=== PATIENT | male | born 1970 | race Caucasian/White ===

== ENCOUNTER 2016-07-19 19:41 | Inpatient (IN) | payer OTHER ==
[~2016-07-19] VITALS: Ht 175.3 cm; Wt 54.0 kg
[2016-07-19] MEDS ORDERED: MoRPHine SULFATE 4 MG/ML 1 ML CARP\\VIAL IV STA (20:07)
[2016-07-19] MEDS ORDERED: ONDANSETRON INJ 2 MG/ML 2 ML VIAL IV STA (20:07)
[2016-07-19] MEDS ORDERED: BUPR150T7 PO (20:23)
[2016-07-19] MEDS ORDERED: ATEN50TA8 PO (20:23)
[2016-07-19] MEDS ORDERED: LEVO100T7 PO (20:23)
[2016-07-19] MEDS ORDERED: ASPI81TA28 PO (20:23)
[2016-07-19] MEDS ORDERED: LTHSR/300 PO (20:23)
[2016-07-19 20:34] LABS: BASO % 0.7 %; BASO ABS # 0.08 K/uL (0-0.2); COMPLETE YES; EOS % 6.6 %; HEMATOCRIT 31.2 % (42-52); IG% 0.1 %; LYMPH % 14.1 %; LYMPH ABS # 1.72 K/uL (1.2-3.4); MEAN CELL VOLUME 93.7 fL (80-100); MEAN CORPUSCULAR HEMOGLOBIN 30.9 pg (25-34); MEAN PLATELET VOLUME 9.8 fL (7.4-10.4); MONO % 12.3 %; NEUT % 66.2 %; PLATELET COUNT 691 K/uL (130-400); RED BLOOD COUNT 3.33 M/uL (4.7-6.1); WHITE BLOOD COUNT 12.21 K/uL (4.8-10.8)
[2016-07-19 20:50] LABS: INR 1.3 (0.9-1.1); PARTIAL THROMBOPLASTIN RATIO 1.2
[2016-07-19 20:52] LABS: ALT/SGPT 18 U/L (12-78); AST/SGOT 13 U/L (15-37); BLOOD UREA NITROGEN 15 mg/dl (7-18); BUN/CREATININE RATIO 17.5 (10-20); CALCIUM 8.6 mg/dl (8.5-10.1); CARBON DIOXIDE 26 mmol/L (21-32); CHLORIDE 104 mmol/L (98-107); CREATININE 0.84 mg/dl (0.60-1.40); GLUCOSE 101 mg/dl (70-99); POTASSIUM 3.9 mmol/L (3.5-5.1); SODIUM 138 mmol/L (136-145)
[2016-07-19 20:55] LABS: ALKALINE PHOSPHATASE 94 U/L (45-117)
--- NOTE | 2016-07-19 21:03 | DIAGNOSTIC IMAGING REPORT ---
CHEST 2 VIEWS ROUTINE CLINICAL HISTORY: Left arm swelling COMPARISON STUDY: No previous studies for comparison. FINDINGS: The heart is normal in size. There is no failure. There is no focal pulmonary consolidation. There are small bilateral pleural effusions. Small calcifications are visualized within the anterior mediastinum, likely represent calcified nodes.[ There are minor basilar atelectatic changes. IMPRESSION: Small bilateral pleural effusions. No evidence of failure. Electronically signed by: Alexandru Reich M.D. 07/19/2016 9:02 PM Dictated Date/Time: 07/19/2016 9:01 PM
--- NOTE | 2016-07-19 21:23 | DIAGNOSTIC IMAGING REPORT ---
ULTRASOUND VENOUS DOPPLER ULTRASOUND OF THE LEFT UPPER EXTREMITY CLINICAL HISTORY: Left arm swelling COMPARISON STUDY: No previous studies for comparison. FINDINGS: There is extensive thrombus within the left internal jugular vein, subclavian vein, and axillary vein. There is also thrombus in the basilic and brachial veins. The cephalic vein appears patent. The radial and ulnar veins appear patent. Thrombus diameter within the internal jugular vein is 9 mm. IMPRESSION: Extensive acute left upper extremity DVT with involvement of the left internal jugular vein, subclavian vein, and axillary vein, and brachial and basilic veins. Electronically signed by: Alexandru Reich M.D. 07/19/2016 9:22 PM Dictated Date/Time: 07/19/2016 9:18 PM
--- NOTE | 2016-07-19 22:18 | EMERGENCY ROOM VISIT NOTE ---
History Report prepared by Howard: Irais Glass Under the Supervision of: Dr. Rj Garcia M.D. First contact with patient: 19:52 Chief Complaint: SWELLING TO EXTREMITY Stated Complaint: EXTREME SWELLING OF LEFT ARM History of Present Illness The patient is a 46 year old male who presents to the Emergency Room with complaints of left arm swelling beginning yesterday. The patient states that he has had pancreatic cancer for 7 months and uses holistic care and cannabis oil to manage his symptoms. This is managed by himself and his son who is a sports trainer. He is not regularly seen by a physician. The patient's son states that 6 days ago the patient had swelling of his feet and he took a bath with Epsom salts and the swelling resolved. Yesterday he reports that his left hand and arm began swelling and the Epsom salt bath helped it to go down significantly but today it is swelled up again. The patient states that he feels like his arm was "pounded" and bruised. He denies any abdominal pain, chest pain, shortness of breath, fever, diarrhea, black or bloody stools, and history of blood clots. He notes that he is in early stages of emphysema and his pancreatic tumor is wrapped around an artery and inoperable. He was told that he had 6 months to live 7 months ago. The son notes that the patient recently moved to the area for ease of care. Source of History: patient Onset: yesterday Position: arm (left) Symptom Intensity: moderate Quality: other (swelling/pounded/bruising) Timing: constant Modifying Factors (Relieving): other (Epsom Salt bath) Associated Symptoms: No SOB, No abdominal pain, No chest pain, No diarrhea, No fevers Note: He denies any black or bloody stools and history of blood clots. Review of Systems See HPI for pertinent positives & negatives. A total of 10 systems reviewed and were otherwise negative. Past Medical & Surgical Medical Problems: (1) Ascites (2) Colitis (3) Pancreatic cancer Family History No pertinent family history stated. Social History Smoking Status: Former Smoker Housing Status: lives with family Occupation Status: unemployed Current/Historical Medications Scheduled Aspirin (Aspirin Ec), 81 MG PO DAILY Atenolol (Tenormin), 50 MG PO BID Bupropion Hcl (Wellbutrin Sr), 150 MG PO DAILY Levothyroxine Sodium (Levothyroxine Sodium), 100 MG PO DAILY Burgin Carbonate (Burgin Carbonate), 300 MG PO BID Allergies Coded Allergies: Clarithromycin (Verified Allergy, Intermediate, Facial swelling, 07/19/16) Physical Exam Vital Signs Date Time Temp Pulse Resp B/P Pulse Ox O2 Delivery O2 Flow Rate FiO2 07/19/16 21:30 81 16 111/63 99 Room Air 07/19/16 19:45 37.0 86 18 106/72 100 Room Air Physical Exam Constitutional: Vital signs reviewed. Eyes: Pupils are equal round reactive to light. Conjunctiva are noninjected. ENT: Pharynx is clear without erythema or exudate. Mucous membranes are moist. Neck supple without meningeal signs. Respiratory: Clear to auscultation bilaterally. Breath sounds are equal bilaterally. Cardiovascular: Regular rate and rhythm. No rubs or gallops. GI: Soft, nondistended. Bowel sounds are present. Supraumbilical tenderness without guarding Musculoskeletal: No lower extremity tenderness. Diffuse swelling to the left upper extremity. Good distal pulses. No signs of compartment syndrome. Tenderness over the distal bicep. Integumentary: No cyanosis. Neurological: The patient is awake and alert. No focal deficits. Psychiatric: Normal affect. Medical Decision & Procedures ER Provider Diagnostic Interpretation: Other radiology results as stated below per my review and the radiologist's interpretation: CHEST 2 VIEWS ROUTINE FINDINGS: The heart is normal in size. There is no failure. There is no focal pulmonary consolidation. There are small bilateral pleural effusions. Small calcifications are visualized within the anterior mediastinum, likely represent calcified nodes. There are minor basilar atelectatic changes. IMPRESSION: Small bilateral pleural effusions. No evidence of failure. Electronically signed by: Alexandru Reich M.D. 07/19/2016 9:02 PM Dictated Date/Time: 07/19/2016 9:01 PM ULTRASOUND VENOUS DOPPLER ULTRASOUND OF THE LEFT UPPER EXTREMITY FINDINGS: There is extensive thrombus within the left internal jugular vein, subclavian vein, and axillary vein. There is also thrombus in the basilic and brachial veins. The cephalic vein appears patent. The radial and ulnar veins appear patent. Thrombus diameter within the internal jugular vein is 9 mm. IMPRESSION: Extensive acute left upper extremity DVT with involvement of the left internal jugular vein, subclavian vein, and axillary vein, and brachial and basilic veins. Electronically signed by: Alexandru Reich M.D. 07/19/2016 9:22 PM Dictated Date/Time: 07/19/2016 9:18 PM Laboratory Results 07/19/16 20:24 Red Blood Count 3.33, Mean Corpuscular Volume 93.7, Mean Corpuscular Hemoglobin 30.9, Mean Corpuscular Hemoglobin Concent 33.0, Mean Platelet Volume 9.8, Neutrophils (%) (Auto) 66.2, Lymphocytes (%) (Auto) 14.1, Monocytes (%) (Auto) 12.3, Eosinophils (%) (Auto) 6.6, Basophils (%) (Auto) 0.7, Neutrophils # (Auto ) 8.10, Lymphocytes # (Auto) 1.72, Monocytes # (Auto) 1.50, Eosinophils # (Auto ) 0.80, Basophils # (Auto) 0.08 07/19/16 20:24 Test 07/19/16 20:24 White Blood Count 12.21 K/uL (4.8-10.8) Red Blood Count 3.33 M/uL (4.7-6.1) Hemoglobin 10.3 g/dL (14.0-18.0) Hematocrit 31.2 % (42-52) Mean Corpuscular Volume 93.7 fL (80-100) Mean Corpuscular Hemoglobin 30.9 pg (25-34) Mean Corpuscular Hemoglobin Concent 33.0 g/dl (32-36) Platelet Count 691 K/uL (130-400) Mean Platelet Volume 9.8 fL (7.4-10.4) Neutrophils (%) (Auto) 66.2 % Lymphocytes (%) (Auto) 14.1 % Monocytes (%) (Auto) 12.3 % Eosinophils (%) (Auto) 6.6 % Basophils (%) (Auto) 0.7 % Neutrophils # (Auto) 8.10 K/uL (1.4-6.5) Lymphocytes # (Auto) 1.72 K/uL (1.2-3.4) Monocytes # (Auto) 1.50 K/uL (0.11-0.59) Eosinophils # (Auto) 0.80 K/uL (0-0.5) Basophils # (Auto) 0.08 K/uL (0-0.2) RDW Standard Deviation 48.2 fL (36.4-46.3) RDW Coefficient of Variation 14.0 % (11.5-14.5) Immature Granulocyte % (Auto) 0.1 % Immature Granulocyte # (Auto) 0.01 K/uL (0.00-0.02) Prothrombin Time 14.0 SECONDS (9.0-12.0) Prothromb Time International Ratio 1.3 (0.9-1.1) Activated Partial Thromboplast Time 31.4 SECONDS (21.0-31.0) Partial Thromboplastin Ratio 1.2 Anion Gap 8.0 mmol/L (3-11) Est Creatinine Clear Calc Drug Dose 88.1 ml/min Estimated GFR () 121.7 Estimated GFR (Non- 105.0 BUN/Creatinine Ratio 17.5 (10-20) Calcium Level 8.6 mg/dl (8.5-10.1) Total Bilirubin 0.3 mg/dl (0.2-1) Direct Bilirubin < 0.1 mg/dl (0-0.2) Aspartate Amino Transf (AST/SGOT) 13 U/L (15-37) Alanine Aminotransferase (ALT/SGPT) 18 U/L (12-78) Alkaline Phosphatase 94 U/L (45-117) Total Protein 6.8 gm/dl (6.4-8.2) Albumin 2.6 gm/dl (3.4-5.0) Lipase 672 U/L (73-393) Laboratory results as reviewed by me. ED Course 1951: The patient was evaluated in room C11. A complete history and physical exam was performed. 2006: Zofran Inj 4mg IV, Morphine Sulfate 4mg IV. 2128: I talked to the patient and his son about the test results. Discussed risks and benefits of blood thinners. Denies rectal bleeding or bloody stools over the last month. He agrees to the IV heparin. 2199: I spoke with Dr. Lizarraga of [facility] [place]. We discussed the patient and his results. The patient will be further evaluated by Dr. Lizarraga. 2203: I spoke to Dr. Toribio who recommended anticoagulation at this point. I relayed this to Dr. Lizarraga. 2203: Heparin Sodium/Dextrose 1ea. NA. Medical Decision This is a 46-year-old male who presents with swelling to his left arm. Differential diagnosis includes DVT, superficial thrombophlebitis, cellulitis, myositis, renal disease, lung tumor. I did perform a limited focused review of portions of the patient's old chart on the electronic medical record. The patient has had no prior visits. I did evaluate the patient as noted above. The patient has a history of pancreatic cancer. He is presenting here with significant pain and swelling to his left arm. He does not have any signs of compartment syndrome. He is neurovascularly intact at this time. He denies any chest pain or shortness of breath. IV access was established. The patient was placed on a continuous monitoring analyst. I did order and personally review the patient's chest x-ray as described above. I did order and review the patient's blood work as noted in the electronic medical record. I did order an ultrasound of the left upper extremity. I did review the images myself as well as the radiology report as described above. He does have an extensive DVT to left upper extremity extending from his jugular vein down into his basilic vein. I did discuss the test results with the patient and his family. I did recommend hospitalization for further care. I did discuss risks and benefits of IV heparin with the patient and his son. I did treat the patient with IV heparin. I did discuss the case with Dr. Sarah a vascular surgery as well as Dr. Saez who will hospitalized patient. Consults Time Called: 2138 Consulting Physician: Dr. Lizarraga - [facility] [place] Returned Call: [address] Lizarraga of [facility] [place]. We discussed the patient and his results. The patient will be further evaluated by Dr. Lizarraga. Additional Consults: Time Called: 2199 Consulted Physician: Dr. Toribio Returned Call: 2203 Additional Comments: I spoke to Dr. Toribio who recommended anticoagulation at this point. I relayed this to Dr. Lizarraga. Impression Primary Impression: Jugular vein thrombosis, left Additional Impressions: Deep vein thrombosis (DVT) of left upper extremity Anemia Pancreatic cancer Scribe Attestation The scribe's documentation has been prepared under my direct and personally reviewed by me in its entirety. I confirm that the note above accurately reflects all work, treatment, procedures, and medical decision making performed by me. Departure Information Dispostion Being Evaluated By Hospitalist Referrals No Doctor, Assigned (PCP) Patient Instructions My [facility] Problem Qualifiers Additional Impressions: Deep vein thrombosis (DVT) of left upper extremity Affected thrombotic vein of extremity: unspecified vein of extremity Chronicity: acute Qualified Codes: I82.622 - Acute embolism and thrombosis of deep veins of left upper extremity Pancreatic cancer Pancreatic malignancy location: unspecified Qualified Codes: C25.9 - Malignant neoplasm of pancreas, unspecified
[2016-07-19] MEDS ORDERED: LITHIUM CARBONATE 300 MG TAB PO ONE (22:20)
[2016-07-19] MEDS ORDERED: HEPARIN SOD 5000 UNIT/0.5 ML CARP ONE (22:26)
[2016-07-19] MEDS ORDERED: HEPARIN 25000 UNIT/500 ML D5W ONE (22:27)
[2016-07-19] MEDS ORDERED: ZOLPIDEM TARTRATE 5 MG TAB PO PRN (22:30)
[2016-07-19] MEDS ORDERED: MoRPHine SULFATE 4 MG/ML 1 ML CARP\\VIAL IV PRN (22:30)
[2016-07-19] MEDS ORDERED: ACETAMINOPHEN 325 MG TAB PO PRN (22:30)
[2016-07-19] MEDS ORDERED: ONDANSETRON INJ 2 MG/ML 2 ML VIAL IV PRN (22:30)
[2016-07-19] MEDS ORDERED: ALUMINUM/MAGNESIUM/SIMETH (MAALOX MAX) 30 ML UDC PO PRN (22:30)
[2016-07-19] MEDS ORDERED: PROMETHAZINE HCL INJ 12.5 MG in SODIUM CHLORIDE 0.9% 50ML 50 ML IV PRN (22:30)
[2016-07-19] MEDS ORDERED: DiphenhydrAMINE HCL 50 MG/ML VIAL IV PRN (22:30)
[2016-07-19] MEDS ORDERED: MoRPHine SULFATE 2 MG/ML CARP IV PRN (22:30)
[2016-07-19] MEDS ORDERED: LORAZEPAM 2 MG/ML 1 ML VIAL IV PRN (22:30)
[2016-07-19] MEDS ORDERED: MIRTAZAPINE TAB 15 MG TAB PO STA (23:37)
[2016-07-19 23:41] VITALS: BP 97/60; PULSE 75; TEMP 36.9; O2SAT 97
[2016-07-20] VITALS (7 sets, daily range): BP systolic 90–132; BP diastolic 54–79; PULSE 69–86; TEMP 36.5–37; O2SAT 98–99; BMI 18.5
--- NOTE | 2016-07-20 01:57 | History and Physical ---
History & Physical Date & Time of Service: Jul 20, 2016 at 01:44 Chief Complaint: Deep Vein Thrombosis Of Left Upper Extremity Primary Care Physician: No Doctor, Assigned History of Present Illness Source: patient, friend The patient is a 46-year-old male who presents emergency department with worsening left arm swelling that began the day prior to arrival. Patient has a history of pancreatic cancer for 7 months, he reports using holistic care and cannabis oil dementia symptoms. When the swelling in his left hand and arm began yesterday, Epsom salt bath help to go down significantly, but since it swelled up again today, he presents to the emergency department for assessment. Doppler revealed an extensive left upper extremity DVT, with involvement of the left internal jugular vein, with the concern to possibly develop compartment syndrome, and was then referred for evaluation for admission. His family and friend report that his oral intake has been significantly reduced. Social History Smoking Status: Current Every Day Smoker Smokeless Tobacco Use: No Alcohol Use: none Drug Use: none Housing status: lives with family Occupational Status: unemployed Multi-Drug Resistant Organisms History of MDRO: No Allergies Coded Allergies: Clarithromycin (Verified Allergy, Intermediate, Facial swelling, 07/19/16) Home Medications Scheduled Aspirin (Aspirin Ec), 81 MG PO DAILY Atenolol (Tenormin), 50 MG PO BID Bupropion Hcl (Wellbutrin Sr), 150 MG PO DAILY Levothyroxine Sodium (Levothyroxine Sodium), 100 MG PO DAILY [place]well Carbonate (Austwell Carbonate), 300 MG PO BID Review of Systems The patient denies chest pain, palpitations, shortness of breath, cough, lower extremity swelling, vision change, hearing change, sore throat, fevers, chills, sweats, vomiting, abdominal pain, pelvic pain, blood in urine or stool, dysuria , urinary frequency or urgency, headache, memory loss, rash, abnormal bruising or bleeding, imbalance, focal weakness, back or neck pain, night sweats, or allergy symptoms. The review of systems is otherwise negative other than for that already noted above, and at least 10 systems have been reviewed. Physical Exam Vital Signs Date Time Temp Pulse Resp B/P Pulse Ox O2 Delivery O2 Flow Rate FiO2 07/20/16 00:08 36.9 75 20 97/60 Room Air 07/19/16 23:41 36.9 75 20 97/60 97 Room Air 07/19/16 22:46 86 18 114/70 100 07/19/16 21:30 81 16 111/63 99 Room Air 07/19/16 19:45 37.0 86 18 106/72 100 Room Air The patient is awake, appears gaunt and malnourished, alert and oriented 3, lying in bed and in no acute distress. HEENT--PERRL, EOMI, mucous membranes and oropharynx dry. Neck--supple, no JVD or bruits, thyroid normal, trachea midline, no adenopathy. Heart--normal S1 and S2, no extra beats, no murmurs, rubs or gallops. Lungs--clear bilaterally, No respiratory distress, no accessory muscle use. Abdomen--normal bowel sounds and soft, nontender and nondistended, no hernias or masses, no organomegaly. Extremities--bilateral lower extremities with no cyanosis, clubbing or edema. Left upper extremity with significant edema, no erythema or warmth. There are good distal pulses b/l. Dermatologic--normal skin turgor, normal color, warm and dry, no abnormal lymph nodes, no rash. Neurologic--cranial nerves II through XII grossly intact. Rheumatologic--decreased range of motion of left upper extremity due to significant edema Psychiatric--normal affect. Diagnostics Laboratory Results Results Past 24 Hours Test 07/19/16 20:24 Range/Units White Blood Count 12.21 4.8-10.8 K/uL Red Blood Count 3.33 4.7-6.1 M/uL Hemoglobin 10.3 14.0-18.0 g/dL Hematocrit 31.2 42-52 % Mean Corpuscular Volume 93.7 80-100 fL Mean Corpuscular Hemoglobin 30.9 25-34 pg Mean Corpuscular Hemoglobin Concent 33.0 32-36 g/dl Platelet Count 691 130-400 K/uL Mean Platelet Volume 9.8 7.4-10.4 fL Neutrophils (%) (Auto) 66.2 % Lymphocytes (%) (Auto) 14.1 % Monocytes (%) (Auto) 12.3 % Eosinophils (%) (Auto) 6.6 % Basophils (%) (Auto) 0.7 % Neutrophils # (Auto) 8.10 1.4-6.5 K/uL Lymphocytes # (Auto) 1.72 1.2-3.4 K/uL Monocytes # (Auto) 1.50 0.11-0.59 K/uL Eosinophils # (Auto) 0.80 0-0.5 K/uL Basophils # (Auto) 0.08 0-0.2 K/uL RDW Standard Deviation 48.2 36.4-46.3 fL RDW Coefficient of Variation 14.0 11.5-14.5 % Immature Granulocyte % (Auto) 0.1 % Immature Granulocyte # (Auto) 0.01 0.00-0.02 K/uL Prothrombin Time 14.0 9.0-12.0 SECONDS Prothromb Time International Ratio 1.3 0.9-1.1 Activated Partial Thromboplast Time 31.4 21.0-31.0 SECONDS Partial Thromboplastin Ratio 1.2 Sodium Level 138 136-145 mmol/L Potassium Level 3.9 3.5-5.1 mmol/L Chloride Level 104 98-107 mmol/L Carbon Dioxide Level 26 21-32 mmol/L Anion Gap 8.0 3-11 mmol/L Blood Urea Nitrogen 15 7-18 mg/dl Creatinine 0.84 0.60-1.40 mg/dl Est Creatinine Clear Calc Drug Dose 88.1 ml/min Estimated GFR () 121.7 Estimated GFR (Non- 105.0 BUN/Creatinine Ratio 17.5 10-20 Random Glucose 101 70-99 mg/dl Calcium Level 8.6 8.5-10.1 mg/dl Total Bilirubin 0.3 0.2-1 mg/dl Direct Bilirubin < 0.1 0-0.2 mg/dl Aspartate Amino Transf (AST/SGOT) 13 15-37 U/L Alanine Aminotransferase (ALT/SGPT) 18 12-78 U/L Alkaline Phosphatase 94 45-117 U/L Total Protein 6.8 6.4-8.2 gm/dl Albumin 2.6 3.4-5.0 gm/dl Lipase 672 73-393 U/L Diagnostic Radiology Patient Name: YASMEEN GONZALEZ Unit Number: [id number] Dictated: 07/19/162117 Transcribed: 07/19/162117 ARG Printed Date/Time: [~ rep prt dt]/[~ rep prt tm] [~ rep ct labl] - [~ rep ct ivnm] [facility] [place] [address] Dictated: 07/19/162117 Transcribed: 07/19/162117 ARG Printed Date/Time: [~ rep prt dt]/[~ rep prt tm] [~ rep ct labl] - [~ rep ct ivnm] ULTRASOUND VENOUS DOPPLER ULTRASOUND OF THE LEFT UPPER EXTREMITY CLINICAL HISTORY: Left arm swelling COMPARISON STUDY: No previous studies for comparison. FINDINGS: There is extensive thrombus within the left internal jugular vein, subclavian vein, and axillary vein. There is also thrombus in the basilic and brachial veins. The cephalic vein appears patent. The radial and ulnar veins appear patent. Thrombus diameter within the internal jugular vein is 9 mm. IMPRESSION: Extensive acute left upper extremity DVT with involvement of the left internal jugular vein, subclavian vein, and axillary vein, and brachial and basilic veins. Electronically signed by: Alexandru Reich M.D. 07/19/2016 9:22 PM Dictated Date/Time: 07/19/2016 9:18 PM The status of this report is Signed. Draft = Not yet reviewed or approved by Radiologist. Signed = Reviewed and approved by Radiologist. <AttendingPhy></AttendingPhy> <FamilyPhy>No Doctor, Assigned</FamilyPhy> < PrimaryPhy>No Doctor, Assigned</PrimaryPhy> <UnitNumber>[id number]</UnitNumber> <VisitNumber>[id number]</VisitNumber> <PatientName>LISAYASMEEN Cindy</PatientName > <DateOfBirth>1970</DateOfBirth> <Location>[facility]</Location> <ServiceDate> 07/19/16</ServiceDate> <MNE>ESINDI</MNE> <OrderingPhy>Rj Garcia MD</ OrderingPhy> <OrderingPhyMNE>f rep ord dr escobedo</OrderingPhyMNE> <DictatingPhyMNE> f rep dict dr escobedo</DictatingPhyMNE> <CCListMNE>f rep ct mne</CCListMNE> < AdmittingPhyMNE>f pt admit dr escobedo</AdmittingPhyMNE> <AttendingPhyMNE>f pt attend dr escobedo</AttendingPhyMNE> <ConsultingPhyMNE>f pt consult dr escobedo</ConsultingPhyMNE> <FamilyPhyMNE>f pt fam dr escobedo</FamilyPhyMNE> <OtherPhyMNE>f pt other dr escobedo</OtherPhyMNE> < PrimaryPhyMNE>f pt prim care dr escobedo</PrimaryPhyMNE> <ReferringPhyMNE>f pt referring dr escobedo</ReferringPhyMNE> Patient Name: YASMEEN GONZALEZ Unit Number: [id number] Dictated: 07/19/162100 Transcribed: 07/19/162100 ARG Printed Date/Time: [~ rep prt dt]/[~ rep prt tm] [~ rep ct labl] - [~ rep ct ivnm] [facility] [place] [address] Dictated: 07/19/162100 Transcribed: 07/19/162100 ARG Printed Date/Time: [~ rep prt dt]/[~ rep prt tm] [~ rep ct labl] - [~ rep ct ivnm] [~ rep ct add3]] CHEST 2 VIEWS ROUTINE CLINICAL HISTORY: Left arm swelling COMPARISON STUDY: No previous studies for comparison. FINDINGS: The heart is normal in size. There is no failure. There is no focal pulmonary consolidation. There are small bilateral pleural effusions. Small calcifications are visualized within the anterior mediastinum, likely represent calcified nodes.[ There are minor basilar atelectatic changes. IMPRESSION: Small bilateral pleural effusions. No evidence of failure. Electronically signed by: Alexandru Reich M.D. 07/19/2016 9:02 PM Dictated Date/Time: 07/19/2016 9:01 PM The status of this report is Signed. Draft = Not yet reviewed or approved by Radiologist. Signed = Reviewed and approved by Radiologist. <AttendingPhy></AttendingPhy> <FamilyPhy>No Doctor, Assigned</FamilyPhy> < PrimaryPhy>No Doctor, Assigned</PrimaryPhy> <UnitNumber>[id number]</UnitNumber> <VisitNumber>[id number]</VisitNumber> <PatientName>YASMEEN GONZALEZ</PatientName > <DateOfBirth>1970</DateOfBirth> <Location>[facility]</Location> <ServiceDate> 07/19/16</ServiceDate> <MNE>ESINDI</MNE> <OrderingPhy>Rj Garcia MD</ OrderingPhy> <OrderingPhyMNE>f rep ord dr escobedo</OrderingPhyMNE> <DictatingPhyMNE> f rep dict dr escobedo</DictatingPhyMNE> <CCListMNE>f rep ct fanny</CCListMNE> < AdmittingPhyMNE>f pt admit dr escobedo</AdmittingPhyMNE> <AttendingPhyMNE>f pt attend dr escobedo</AttendingPhyMNE> <ConsultingPhyMNE>f pt consult dr escobedo</ConsultingPhyMNE> <FamilyPhyMNE>f pt fam dr escobedo</FamilyPhyMNE> <OtherPhyMNE>f pt other dr escobedo</OtherPhyMNE> < PrimaryPhyMNE>f pt prim care dr escobedo</PrimaryPhyMNE> <ReferringPhyMNE>f pt referring dr escobedo</ReferringPhyMNE> Impression Assessment and Plan Extensive left upper extremity DVT/internal jugular vein thrombosis--the patient will be admitted to the medical floor. He'll be placed on heparin IV weight-based protocol. Dr. Sarah from vascular surgery has been consulted by the emergency department personnel and will see the patient. The patient will keep his arm at heart level, not allowed to be dependent, to help avoid compartment syndrome. Pancreatic cancer--patient has been following holistic treatment, and does not regularly see a physician. Hypertension--continue atenolol 50 mg by mouth twice a day with hold parameters , and enteric-coated aspirin 81 mg by mouth daily. Hypothyroidism--continue levothyroxine sodium 100 g by mouth daily. Bipolar disorder--continue lithium carbonate 300 mg by mouth twice a day, Wellbutrin SR 150 mg by mouth every morning, and will add mirtazapine 15 mg by mouth at bedtime for sleep and possible appetite stimulation. Appetite stimulant--we'll add Megace 800 mg liquid by mouth every morning. Level of Care Med/Surg Advanced Directives Existing Advance Directive: No Existing Living Will: No Existing Power of Sales Agent Casualty Insurance: No Resuscitation Status FULL RESUSCITATION VTE Prophylaxis VTE Risk Assessment Done? Y/N: Yes Risk Level: High Given or contraindicated: Unfractionated heparin SQ
[2016-07-20] MEDS: LEVOTHYROXINE 100 MCG TAB PO SCH ×2 (06:11→22:35)
[2016-07-20] MEDS ORDERED: MEGESTROL ACETATE 800 MG/20 ML UDP PO SCH (09:00)
[2016-07-20] MEDS: BuPROPion SR 150 MG TABCR PO SCH (09:16)
[2016-07-20] MEDS: LITHIUM CARBONATE 300 MG TAB PO SCH ×2 (09:17→19:40)
[2016-07-20] MEDS: MEGESTROL ACETATE PO SCH (09:18)
[2016-07-20] MEDS: ASPIRIN 81 MG ECTAB PO SCH (09:18)
[2016-07-20 12:43] LABS: PARTIAL THROMBOPLASTIN RATIO 1.3
[2016-07-20] MEDS ORDERED: HEPARIN IV BOLUS 5,000 UNIT in SYRINGE 0 ML IV ONE (14:15)
[2016-07-20] MEDS ORDERED: OXYCODONE HCL IR 5 MG TAB (IMMEDIATE RELEASE) PO PRN (14:30)
[2016-07-20] MEDS: HEPARIN 25,000 UNIT/500ML D5W 500 ML IV PRN ×2 (14:33→22:35)
--- NOTE | 2016-07-20 14:33 | Progress Note ---
Subjective Date of Service: Jul 20, 2016. Subjective Pt evaluation today including: conversation w/ patient, physical exam, chart review, lab review, review of inpatient medication list arm still swollen, still hurts. no real change there. notes slurred speech but appears fatigued, and denies any face numbness/weakness or difficulties with tongue. no chest pain no shortness of breath notes that he's been mostly in [facility] since 2001, but notes that pancreatic cancer was diagnosed in [facility] (he believes - relates [facility]) about 7 months ago. interestingly home address in computer system [place] but he relates he hasn't lived there for quite a while. Problem List Medical Problems: (1) Anemia Status: Acute (2) Deep vein thrombosis (DVT) of left upper extremity Status: Acute (3) Jugular vein thrombosis, left Status: Acute Review of Systems Respiratory: No shortness of breath Cardiac: No chest pain Musculoskeletal: + problem reported (L arm swelling and pain) ros otherwise negative except for as above Objective Vital Signs Date Time Temp Pulse Resp B/P Pulse Ox O2 Delivery O2 Flow Rate FiO2 07/20/16 11:22 36.5 74 18 94/59 98 Room Air 07/20/16 08:00 Room Air 07/20/16 07:33 36.7 69 16 95/60 99 Room Air 07/20/16 04:22 36.5 81 16 132/79 98 Room Air 07/20/16 00:08 36.9 75 20 97/60 Room Air 07/19/16 23:41 36.9 75 20 97/60 97 Room Air 07/19/16 22:46 86 18 114/70 100 07/19/16 21:30 81 16 111/63 99 Room Air 07/19/16 19:45 37.0 86 18 106/72 100 Room Air Physical Exam General Appearance: no apparent distress Eyes: EOMI ENT: hearing grossly normal Neck: trachea midline Respiratory/Chest: no respiratory distress, no accessory muscle use Extremities: + swelling, + pertinent finding (LUE diffusely swollen and tender , appearing neurovascularly intact distally though, skin not tense so as to suggest compartment syndrome) Neurologic/Psychiatric: test manager II-XII nml as tested, alert, normal mood/affect Skin: normal color, warm/dry Laboratory Results Last 24 Hours Test 07/19/16 20:24 07/20/16 04:32 07/20/16 12:05 White Blood Count 12.21 K/uL Red Blood Count 3.33 M/uL Hemoglobin 10.3 g/dL Hematocrit 31.2 % Mean Corpuscular Volume 93.7 fL Mean Corpuscular Hemoglobin 30.9 pg Mean Corpuscular Hemoglobin Concent 33.0 g/dl Platelet Count 691 K/uL Mean Platelet Volume 9.8 fL Neutrophils (%) (Auto) 66.2 % Lymphocytes (%) (Auto) 14.1 % Monocytes (%) (Auto) 12.3 % Eosinophils (%) (Auto) 6.6 % Basophils (%) (Auto) 0.7 % Neutrophils # (Auto) 8.10 K/uL Lymphocytes # (Auto) 1.72 K/uL Monocytes # (Auto) 1.50 K/uL Eosinophils # (Auto) 0.80 K/uL Basophils # (Auto) 0.08 K/uL RDW Standard Deviation 48.2 fL RDW Coefficient of Variation 14.0 % Immature Granulocyte % (Auto) 0.1 % Immature Granulocyte # (Auto) 0.01 K/uL Prothrombin Time 14.0 SECONDS Prothromb Time International Ratio 1.3 Activated Partial Thromboplast Time 31.4 SECONDS 77.2 SECONDS 34.3 SECONDS Partial Thromboplastin Ratio 1.2 3.0 1.3 Sodium Level 138 mmol/L Potassium Level 3.9 mmol/L Chloride Level 104 mmol/L Carbon Dioxide Level 26 mmol/L Anion Gap 8.0 mmol/L Blood Urea Nitrogen 15 mg/dl Creatinine 0.84 mg/dl Est Creatinine Clear Calc Drug Dose 88.1 ml/min Estimated GFR () 121.7 Estimated GFR (Non- 105.0 BUN/Creatinine Ratio 17.5 Random Glucose 101 mg/dl Calcium Level 8.6 mg/dl Total Bilirubin 0.3 mg/dl Direct Bilirubin < 0.1 mg/dl Aspartate Amino Transf (AST/SGOT) 13 U/L Alanine Aminotransferase (ALT/SGPT) 18 U/L Alkaline Phosphatase 94 U/L Total Protein 6.8 gm/dl Albumin 2.6 gm/dl Lipase 672 U/L Assessment and Plan LUE DVT -appears to relate to pancreatic cancer as cause for hypercoagulability -appears painful but no evidence to suggest compartment syndrome; has not used any prn pain meds -continue heparin gtt. discussed lovenox (treatment of choice w DVT related to most malignancies) vs NOAC (less data for use in malignancy but not an injectable) - and discussed risks/benefits unique to his situation (grave prognosis and already outlived predicted life expectancy) so that quality of life may also come into decision making on one type of anticoagulant vs another. also discussed that i am unaware of alternative medicine measures that could treat DVT effectively pancreatic cancer -relates he was told it was "wrapped around a blood vessel so they couldn't operate" and he then opted for alternative treatments given grave prognosis and relative futility w high ADRs from chemo/etc -appears to have done well -would like to get records to confirm dx and also to see if any other palliative measures might be of benefit to him (such as palliative radiation, etc) social situation -per him, lives with son. on review of records does not appear to get regular medical care anywhere, and hospital care clearly sporadic and scattered. will try to get records from [facility] in [place], would also want to ensure he has a local PCP so that if he develops need for more conventional medical care ( new issues arise, if he needs hospice care, etc) he would have easier means to seek care low BMI/probable moderate protein calorie malnutrition -likely relates to cancer more than anything; started on megace, follow anemia -follow mild leukocytosis -nonspecific elevated INR -mild but noted to be up. ?liver mets. await outside records dispo - hopefully home w son in next 1-2 days - would want better pain control.
[2016-07-20] MEDS: MIRTAZAPINE TAB 15 MG TAB PO SCH (19:40)
[2016-07-20 21:11] LABS: PARTIAL THROMBOPLASTIN RATIO 3.7
[2016-07-21] VITALS (8 sets, daily range): BP systolic 94–120; BP diastolic 56–82; PULSE 74–101; TEMP 36.6–36.9; O2SAT 96–99; Ht 175.3 cm; Wt 54.0 kg
[2016-07-21] MEDS: HEPARIN 25,000 UNIT/500ML D5W 500 ML IV PRN (01:16)
[2016-07-21 04:14] LABS: PARTIAL THROMBOPLASTIN RATIO 2.1
[2016-07-21] MEDS: LEVOTHYROXINE 100 MCG TAB PO SCH (05:43)
[2016-07-21 07:20] LABS: HEMATOCRIT 29.6 % (42-52); MEAN CELL VOLUME 92.2 fL (80-100); MEAN CORPUSCULAR HEMOGLOBIN 30.5 pg (25-34); MEAN CORPUSCULAR HGB CONC 33.1 g/dl (32-36); PLATELET COUNT 705 K/uL (130-400); RED BLOOD COUNT 3.21 M/uL (4.7-6.1); WHITE BLOOD COUNT 12.76 K/uL (4.8-10.8)
[2016-07-21] MEDS: ASPIRIN 81 MG ECTAB PO SCH (08:07)
[2016-07-21] MEDS: LITHIUM CARBONATE 300 MG TAB PO SCH ×2 (08:07→21:38)
[2016-07-21] MEDS: BuPROPion SR 150 MG TABCR PO SCH (08:09)
[2016-07-21] MEDS: MEGESTROL ACETATE PO SCH ×2 (08:09→13:32)
[2016-07-21 12:40] LABS: PARTIAL THROMBOPLASTIN RATIO 2.6
--- NOTE | 2016-07-21 16:38 | Family Medicine Progress Note ---
Progress Note Date of Service Jul 21, 2016. Subjective Pt evaluation today including: conversation w/ patient, physical exam, chart review, lab review Pain: LUE pain Patient states that he still have pain on his L arm, severe with movement. His appetite had improved since yesterday. He tolerated breakfast and lunch well. He states that about a week ago he had swelling of his right lower extremity and it resolved without any medical treatment. He is from [place] and came to [place] 3 weeks ago and currently living with his son. He states that he doesn' t want to receive any chemo for his pancreatic cancer. Denies nausea, vomiting, abdominal pain, SOB, chest pain, dizziness, headache or any other additional complaints. Constitutional: No chills, No fever Respiratory: No cough, No shortness of breath, No sputum, No wheezing Cardiovascular: No chest pain Abdomen: No diarrhea, No nausea, No pain, No vomiting Musculoskeletal: + problem reported (pain on the LUE and swelling) Male : No dysuria Medications Current Inpatient Medications Medications (Trade) Dose Ordered Sig/Carmita Route Start Time Stop Time Status Last Admin Dose Admin Acetaminophen (Tylenol Tab) 650 mg Q4H PRN PO 07/19/16 22:30 08/18/16 22:29 Zolpidem Tartrate (Ambien Tab) 5 mg HSZ PRN PO 07/19/16 22:30 08/18/16 22:29 Aspirin (Ecotrin Tab) 81 mg DAILY PO 07/20/16 08:00 08/19/16 08:59 07/21/16 08:07 81 MG Atenolol (Tenormin Tab) 50 mg BID PO 07/20/16 08:00 08/19/16 08:59 Bupropion HCl (Wellbutrin-Sr Tab) 150 mg DAILY PO 07/20/16 08:00 08/19/16 08:59 07/21/16 08:09 150 MG Levothyroxine Sodium (Synthroid Tab) 100 mcg DAILYBB PO 07/20/16 06:30 08/19/16 06:59 07/21/16 05:[address] [facility] Carbonate ([facility] Carbonate Tab) 300 mg BID PO 07/20/16 08:00 08/19/16 08:59 07/21/16 08:07 300 MG Lorazepam (Ativan Inj) 0.5 mg Q4H PRN IV 07/19/16 22:30 08/18/16 22:29 Diphenhydramine HCl (Benadryl Inj) 25 mg Q4H PRN IV 07/19/16 22:30 08/18/16 22:29 Al Hydrox/Mg Hydrox/ Simethicone 15 ml 15 ml Q4H PRN PO 07/19/16 22:30 08/18/16 22:29 Promethazine HCl/ Sodium Chloride (Phenergan Inj/ Nss 50ml) 50.5 ml @ 202 mls/hr Q4H PRN IV 07/19/16 22:30 08/18/16 22:29 Ondansetron HCl (Zofran Inj) 4 mg Q6H PRN IV 07/19/16 22:30 08/18/16 22:29 Morphine Sulfate (MoRPHine SULFATE INJ) 2 mg Q2H PRN IV 07/19/16 22:30 08/02/16 22:29 Morphine Sulfate (MoRPHine SULFATE INJ) 4 mg Q2H PRN IV 07/19/16 22:30 08/02/16 22:29 Mirtazapine (Remeron Tab) 15 mg HS PO 07/20/16 21:00 08/19/16 20:59 07/20/16 19:40 15 MG Megestrol Acetate (Megace Susp) 800 mg QAM PO 07/20/16 08:00 08/19/16 08:59 07/20/16 09:18 800 MG Oxycodone HCl (Roxicodone Immediate Rel Tab) 5 mg QID PRN PO 07/20/16 14:30 08/03/16 14:29 Enoxaparin Sodium (Lovenox 1 Mg/Kg) 1 ea Q12H SQ 07/21/16 16:30 08/20/16 16:29 UNV Objective Vital Signs Date Time Temp Pulse Resp B/P Pulse Ox O2 Delivery O2 Flow Rate FiO2 07/21/16 14:23 36.7 87 20 109/72 99 07/21/16 11:36 36.6 89 18 120/82 99 07/21/16 10:21 Room Air 07/21/16 07:49 36.7 74 20 99/63 97 Room Air 07/21/16 04:08 36.6 75 16 99/71 97 Room Air 07/21/16 01:24 36.8 77 16 94/56 96 Room Air 07/21/16 00:00 98 Room Air 07/20/16 20:00 Room Air 07/20/16 19:45 37.0 86 18 101/65 98 Room Air 07/20/16 19:38 36.8 84 16 96/59 98 Room Air Physical Exam General Appearance: no apparent distress Neck: supple, trachea midline Respiratory/Chest: chest non-tender, lungs clear, no respiratory distress Cardiovascular: regular rate, rhythm, no edema Abdomen: normal bowel sounds, non tender, soft Extremities: no pedal edema, no calf tenderness, + swelling, + pertinent finding (LUE swollen diffusely and tender on touch, sensation is intact) Neurologic/Psychiatric: alert, normal mood/affect, oriented x 3 Skin: normal color, warm/dry Laboratory Results Results Past 24 Hours Test 07/20/16 20:42 07/21/16 03:50 07/21/16 07:00 07/21/16 11:59 Range/Units Activated Partial Thromboplast Time 95.8 54.6 67.9 21.0-31.0 SECONDS Partial Thromboplastin Ratio 3.7 2.1 2.6 White Blood Count 12.76 4.8-10.8 K/uL Red Blood Count 3.21 4.7-6.1 M/uL Hemoglobin 9.8 14.0-18.0 g/dL Hematocrit 29.6 42-52 % Mean Corpuscular Volume 92.2 80-100 fL Mean Corpuscular Hemoglobin 30.5 25-34 pg Mean Corpuscular Hemoglobin Concent 33.1 32-36 g/dl RDW Standard Deviation 48.0 36.4-46.3 fL RDW Coefficient of Variation 14.2 11.5-14.5 % Platelet Count 705 130-400 K/uL Mean Platelet Volume 10.0 7.4-10.4 fL Assessment and Plan This is a 46 y/o m with hx of pancreatic CA (diagnosed 7 months ago) presented to the hospital with LUE swelling and found to have DVT with internal jugular vein thrombosis. 1. LUE IJ DVT - Secondary to pancreatic cancer which caused hypercoagulability - Painful but no evidence to suggest compartment syndrome - Discussed with the patient about different medicine options for DVT. Patient decided to be on Lovenox - d/c heparin and start him on Lovenox 1mg/kg q12 2. Pain control - Patient is on Oxycodone 5mg QID prn, Tylenol 650mg q4h prn, Morphine 4mg and 2mg q2h prn - Patient haven't taken any prn pain medications 3. Pancreatic cancer - Patient didn't receive any treatment so far. He is been using herbal medication, homeopathy and cannabis oil. He states at this time he doesn't want to on chemo. - Requested records from outside hospital ([facility] and [facility]) to confirm the diagnosis and also more detail about his pancreatic CA. Will follow up 4. Hodgkin Lymphoma - Patient states that he received chemo yrs ago but didn't like the side effects - He follows up with Heme/ONc in [place] but haven't seen the physician for quiet long time 5. Social situation - Patient is from [place] and currently living with son for past 3 weeks. He doesn't follow up with PCP regularly. - He is scheduled to follow up with his PCP Dr. Balbir Clements on Jul 28 6. Moderate protein caloric malnutrition - He states that he has low appetite, which is most likely due to pancreatic CA - Continue Megace 800mg 7. Low Hgb - Could be due to malnutrition - Continue to follow 8. Elevated INR - Could be secondary to pancreatic CA mets to liver. Still don't know detail about his pancreatic CA. At this point waiting for outside records. 9. Depression - Continue Bupropion 150mg daily - Mirtazapine 15mg 10. Hypothyroidism - Continue Synthroid 100mcg 11. DVT prophylaxis - Lovenox 1mg/kg q12 12. Code Status - Full code History Resident Physician Supervision Note: I was present with Dr. Espinal during the history and exam. I discussed the case with the resident and agree with the findings and plan as documented in the note. Any exceptions or clarifications are listed here Pt seen and examined at bedside. LUE pain is minimal so long as the arm is immobile. Swelling has improved somewhat per patient. Has some "slurring" which sounds like fullness of the OP without discomfort. Tolerating Megace without IDA at present. Reports no n/t/w, other swelling, ELIAS. General Appearance: WD/WN, no apparent distress, cachetic Neck: non-tender, supple, normal inspection Respiratory: chest non-tender, lungs clear, normal breath sounds, no respiratory distress Cardiovascular: normal peripheral pulses, regular rate, rhythm, no murmur, other (LUE edema from shoudler to hand) Assessment/Plan 46 y/o male w/ h/o pancreatic Ca presents complaining of LUE swelling w/ DVT DVT - continue heparin, will transition to lovenox after discussion with patient today. Pancreatic Ca - Obtain outpatient records for diagnosis - would not like chemo, has been told not a surgical candidate, advise to establish w/ PCP locally Low BMI - continue megace for now, t/c transition to marinol if available Anemia - stable, continue to follow Leukocytosis - nonspecific, trend elevated INR - mild but noted to be up. ?liver mets. await outside records
[2016-07-21] MEDS: ENOXAPARIN 60 MG/0.6 ML SYR SQ SCH (21:36)
[2016-07-21] MEDS: MIRTAZAPINE TAB 15 MG TAB PO SCH (21:37)
[2016-07-22 00:12] VITALS: BP 112/70; PULSE 97; TEMP 36.9; O2SAT 97
[2016-07-22 05:00] VITALS: BP 121/75; PULSE 108; TEMP 36.6; O2SAT 20
[2016-07-22 06:20] LABS: PARTIAL THROMBOPLASTIN RATIO 1.1
[2016-07-22] MEDS: LEVOTHYROXINE 100 MCG TAB PO SCH (06:39)
--- NOTE | 2016-07-22 07:05 | Family Medicine Progress Note ---
Progress Note Date of Service Jul 22, 2016. Subjective Pt evaluation today including: conversation w/ patient, physical exam, chart review, lab review Medications
[2016-07-22 07:57] VITALS: BP 111/68; PULSE 94; TEMP 36.6; O2SAT 96
[2016-07-22] MEDS: ASPIRIN 81 MG ECTAB PO SCH (09:22)
[2016-07-22] MEDS: BuPROPion SR 150 MG TABCR PO SCH (09:23)
[2016-07-22] MEDS: LITHIUM CARBONATE 300 MG TAB PO SCH (09:23)
[2016-07-22] MEDS: ENOXAPARIN 60 MG/0.6 ML SYR SQ SCH ×2 (09:24→21:08)
[2016-07-22] MEDS: MEGESTROL ACETATE PO SCH (09:24)
[2016-07-22 11:49] VITALS: BP 105/69; PULSE 93; TEMP 36.7; O2SAT 97
[2016-07-22] MEDS ORDERED: LVNIS60 SQ (13:59)
--- NOTE | 2016-07-22 14:02 | Discharge Instructions ---
Discharge Instructions Admission Reason for Admission: Deep Vein Thrombosis Of Left Upper Extremity Discharge Discharge Diagnosis / Problem: Internal Jugular Vein Thrombosis of left upper extremity Discharge Goals Goal(s): Decrease discomfort, Increase independence Activity Recommendations Activity Limitations: resume your previous activity . Instructions / Follow-Up Instructions / Follow-Up You are presented to the hospital with deep vein thrombosis of your left arm. You were given heparin and then switched to Lovenox. Please take Lovenox 60mg twice daily. Please follow up with your primary care doctor on Jul 28, 2016 as scheduled. Current Hospital Diet Patient's current hospital diet: Regular Diet Discharge Diet Recommended Diet: Regular Diet Pending Studies Studies pending at discharge: no Medical Emergencies . Who to Call and When: Medical Emergencies: If at any time you feel your situation is an emergency, please call 911 immediately. . Non-Emergent Contact Non-Emergency issues call your: Primary Care Provider . . "Provider Documentation" section prepared by Vesta Espinal. VTE Core Measure Inpt VTE Proph given/why not?: Unfractionated heparin SQ
[2016-07-22] MEDS ORDERED: LOVENOX TEACHING KIT SCH (14:15)
[2016-07-22 15:48] LABS: ALB/GLOB RATIO 0.6 (0.9-2); BUN/CREATININE RATIO 15.1 (10-20); CALCIUM 8.7 mg/dl (8.5-10.1); CREATININE 0.78 mg/dl (0.60-1.40); POTASSIUM 4.3 mmol/L (3.5-5.1)
[2016-07-22 15:53] VITALS: BP 110/69; PULSE 94; TEMP 37.3; O2SAT 97
--- NOTE | 2016-07-22 17:51 | Discharge Summary ---
Discharge Summary Admission Date: Jul 19, 2016 at 22:25 Discharge Date: Jul 22, 2016 Discharge Disposition: Home Principal Diagnosis: DVT of the Left upper extremity Procedures: ULTRASOUND VENOUS DOPPLER ULTRASOUND OF THE LEFT UPPER EXTREMITY CLINICAL HISTORY: Left arm swelling COMPARISON STUDY: No previous studies for comparison. FINDINGS: There is extensive thrombus within the left internal jugular vein, subclavian vein, and axillary vein. There is also thrombus in the basilic and brachial veins. The cephalic vein appears patent. The radial and ulnar veins appear patent. Thrombus diameter within the internal jugular vein is 9 mm. IMPRESSION: Extensive acute left upper extremity DVT with involvement of the left internal jugular vein, subclavian vein, and axillary vein, and brachial and basilic veins. CHEST 2 VIEWS ROUTINE CLINICAL HISTORY: Left arm swelling COMPARISON STUDY: No previous studies for comparison. FINDINGS: The heart is normal in size. There is no failure. There is no focal pulmonary consolidation. There are small bilateral pleural effusions. Small calcifications are visualized within the anterior mediastinum, likely represent calcified nodes.[ There are minor basilar atelectatic changes. IMPRESSION: Small bilateral pleural effusions. No evidence of failure. (Vesta Espinal MD) Medication Reconciliation New Medications: Enoxaparin (Enoxaparin Sodium) 60 Mg/0.6 Ml Inj 60 MG SQ Q12@0800,1999 for 21 Days Continued Medications: Aspirin (Aspirin Ec) 81 Mg Tab 81 MG PO DAILY Atenolol (Tenormin) 50 Mg Tab 50 MG PO BID, TAB Bupropion Hcl (Wellbutrin Sr) 150 Mg Tab 150 MG PO DAILY, TAB Levothyroxine Sodium (Levothyroxine Sodium) 100 Mcg Tab 100 MG PO DAILY, TAB [place] Carbonate ([place] Carbonate) 300 Mg Cap 300 MG PO BID, CAP Discharge Exam Patient was seen during discharge. Patient continues to have pain on the LUE with movement. His pain is mostly on the upper arm. He states that the pain is improving. His appetite still not good but he thinks it has improved from before. Denies SOB, chest pain, nausea, vomiting, abdominal pain, constipation, diarrhea or any other additional complaints. Review of Systems: Constitutional: No chills, No fever Respiratory: No cough, No dyspnea at rest, No dyspnea on exertion, No shortness of breath Cardiovascular: No chest pain, No edema Abdomen: No constipation, No diarrhea, No nausea, No pain, No vomiting Musculoskeletal: + problem reported (pain on the LUE with movement) Genitourinary - Male: No dysuria Integumentary: No rash Physical Exam: General Appearance: no apparent distress Neck: supple, trachea midline Respiratory/Chest: chest non-tender, lungs clear, normal breath sounds, no respiratory distress Cardiovascular: regular rate, rhythm, no edema Abdomen / GI: normal bowel sounds, non tender, soft Extremities: no pedal edema, + pertinent finding (LUE swollen diffusely and tender on palpitation on the upper arm, sensation is intact) Neurologic/Psychiatric: alert, normal mood/affect, oriented x 3 Skin: normal color, warm/dry, no rash (Vesta Espinal MD) Hospital Course This is a 46-year-old male with hx of pancreatic cancer (diagnosed 7 months ago in [facility]) presents to the ED with worsening left arm swelling that began the day prior to arrival. He reports that he is been using herbal medication, homeopathy and cannabis oil. When the swelling in his left hand and arm began yesterday, Epsom salt bath help to go down significantly, but since it swelled up again today, he presents to the emergency department for assessment. Doppler revealed an extensive left upper extremity DVT, with involvement of the left internal jugular vein, with the concern to possibly develop compartment syndrome, and was then referred for evaluation for admission. His family and friend report that his oral intake has been significantly reduced. 1. LUE IJ DVT - Secondary to pancreatic cancer which caused hypercoagulability - Doppler of LUE showed extensive acute left upper extremity DVT with involvement of the left internal jugular vein, subclavian vein, and axillary vein, and brachial and basilic veins. - His arm was painful but no evidence to suggest compartment syndrome - Patient was started on heparin drip - Discussed with the patient about different medicine options for DVT. Patient decided to be on Lovenox - d/c heparin and start him on Lovenox 1mg/kg q12 on 07/21 - Patient is scheduled to follow up with his primary care provider Dr. Balbir Clements on Jul 28. 2. Pain control - Patient was on Oxycodone 5mg QID prn, Tylenol 650mg q4h prn, Morphine 4mg and 2mg q2h prn - Patient didn't take any prn pain medications - Discussed with the patient in length that how important it is to move arm and shoulder. He understood the consequences and agreed to move his arm as tolerated. 3. Pancreatic cancer - Patient didn't receive any treatment so far. He is been using herbal medication, homeopathy and cannabis oil. He states at this time he doesn't want to be on chemotherapy. Heme/Onc was not consulted given he doesn't want any treatment at this time. - Requested records from outside hospital ([facility]) to confirm the diagnosis and also more detail about his pancreatic CA. Didn't receive any documents yet. 4. Hodgkin Lymphoma - Patient states that he received chemo yrs ago but didn't like the side effects - He follows up with [place]c [place] but haven't seen the physician for quiet long time 5. Social situation - [place] from [place] and currently living with son for past 3 weeks. He doesn't follow up with PCP regularly. - He is scheduled to follow up with his PCP Dr. Balbir Clements on Jul 28 6. Elevated INR - Patient had elevated INR (1.3). Could be secondary to pancreatic CA mets to liver. Still don't know detail about his pancreatic CA given no outside records. - Recommended to follow up with the PCP further 7. Depression - Continue Bupropion 150mg daily - Mirtazapine 15mg 8. Hypothyroidism - Continue Synthroid 100mcg Total Time Spent: Greater than 30 minutes This includes examination of the patient, discharge planning, medication reconciliation, and communication with other providers. (Vesta Espnial MD) Total Time Spent: Less than 30 minutes (Kameron Garza MD) Discharge Instructions Please refer to the electronic Patient Visit Report (Discharge Instructions) for additional information. (Vesta Espinla MD) History Resident supervision note: I was present with Dr. Espinal during the history and examination. I discussed the case with the resident and agree with the findings and plan as documented above. Any exceptions or clarifications are listed here. Pt seen and examined at bedside. Refusing pain medication for LUE pain and able to move with moderate discomfort. Understands risks of immobility of the UE and will follow closely. Discussed in detail that we have no records for his pancreatitis as yet, despite multiple outreach, and are unable to offer complete medical opinion thereon. He will follow closely with his PCP and continue lovenox GEN: AAOx3, NAD, cachectic CV: S1/S2 nl RRR no MCG Resp: CTAB Ext: LUE swelling to the shoulder w/ pitting edema in the hand which is stable to mildly improved, TTP of the proximal LUE. STR 4+/5 2/2 limitation from pain A/P:46 y/o male w/ h/o pancreatic Ca presents complaining of LUE swelling w/ DVT DVT - lovenox, to be transitioned as outpatient to AC per PCP Pancreatic Ca - Unable to obtain outpatient records for diagnosis - would not like chemo, has been told not a surgical candidate - needs close follow up, Appt w/ PCP on Thursday Low BMI - encourage outpatient nutrition management and potential course of marinol or similar Anemia - stable, last Hgb 9.8 elevated INR - mild but noted to be up. AST low but LFTs reviewed. Recheck and follow. (Kameron Garza MD)
[2016-07-22 19:44] VITALS: BP 110/68; PULSE 96; TEMP 36.8; O2SAT 97
== END 2016-07-22 22:22 | disposition home or self-care (01) | DRG 436 ==
LOC: ENRESERVTM → ENRESERVDT → C.EDB 19:42 → C.4E 22:25
PROVIDERS: ADMIT Hospitalist; ATTEND Family Medicine
DX: C25.9 Malignant neoplasm of pancreas, unspecified (principal); I82.622 Acute embolism and thrombosis of deep veins of left upper extremity; E44.0 Moderate protein-calorie malnutrition; D68.59 Other primary thrombophilia; C81.90 Hodgkin lymphoma, unspecified, unspecified site; Z68.1 Body mass index [BMI] 19.9 or less, adult; D64.9 Anemia, unspecified; I10 Essential (primary) hypertension; F31.9 Bipolar disorder, unspecified; F17.210 Nicotine dependence, cigarettes, uncomplicated; E03.9 Hypothyroidism, unspecified; D72.829 Elevated white blood cell count, unspecified; Z60.9 Problem related to social environment, unspecified; Z79.82 Long term (current) use of aspirin; Z79.899 Other long term (current) drug therapy